=== PATIENT | female | born 1960 | race Caucasian/White ===

== ENCOUNTER → 2020-05-19 | Outpatient (CLI) | payer BC | LOC: MC.RAD 04-21 15:45 | DX: Z12.31 Encounter for screening mammogram for malignant neoplasm of breast (principal) ==

== ENCOUNTER → 2021-04-20 | Outpatient (CLI) | payer BC | LOC: COL.VAS 14:15 | DX: R09.89 Other specified symptoms and signs involving the circulatory and respiratory systems (principal) ==

== ENCOUNTER → 2024-05-22 | Outpatient (CLI) | payer BC | LOC: COL.RAD 05-20 07:47 | DX: K59.00 Constipation, unspecified (principal); R14.3 Flatulence; R11.2 Nausea with vomiting, unspecified; R68.81 Early satiety; Z80.0 Family history of malignant neoplasm of digestive organs ==